=== PATIENT | male | born 1990 | race Caucasian/White ===

== ENCOUNTER 2018-05-21 08:48 | Observation (INO) | payer MEDICAID ==
[2018-05-21] VITALS (20 sets, daily range): BP systolic 96–137; BP diastolic 43–85
[~2018-05-21] VITALS: Ht 185.4 cm; Wt 87.1 kg
[2018-05-21] MEDS ORDERED: oxyCODONE SR 10mg (sust. release) tab -2 tabs (20mg) PO ONE (11:00)
[2018-05-21] MEDS ORDERED: celeCOXIB 100mg capsule PO ONE (11:00)
[2018-05-21] MEDS ORDERED: gabapentin 300mg capsule PO ONE (11:00)
[2018-05-21] MEDS ORDERED: vancomycin inj 1,500 MG in normal saline 300ml IV soln IV ONE (11:00)
[2018-05-21] MEDS ORDERED: cefazolin/dext.iso 2gm/100 ML IV ONE (11:00)
[2018-05-21] MEDS ORDERED: acetaminophen 325mg tablet PO ONE (11:00)
[2018-05-21] MEDS ORDERED: ringers solution, lacted 1,000 ML IV SCH ×2 (11:00→11:30)
[2018-05-21] MEDS ORDERED: famotidine 20mg tablet PO ONE (11:00)
[2018-05-21] MEDS ORDERED: metoclopramide 5 mg/ml inj IV ONE (11:00)
[2018-05-21] MEDS ORDERED: morphine 4 MG/ML inj SYRINge IV PRN (11:30)
[2018-05-21] MEDS ORDERED: proCHLORperazine 10 MG/2 ml inj IV PRN (11:30)
[2018-05-21] MEDS ORDERED: meperidine/PF 25mg/ml syringe IV PRN ×2 (11:30)
[2018-05-21] MEDS ORDERED: ondansetron/PF 4mg/2ml inj IV PRN ×2 (11:30→16:00)
[2018-05-21] MEDS ORDERED: vancomycin 1,000mg inj ONE (12:04)
[2018-05-21] MEDS ORDERED: sevoflurane 250ml liquid IH ONE (12:05)
[2018-05-21] MEDS ORDERED: fentaNYL/PF 50MCG/1 ML 2ML syringe ONE (12:11)
[2018-05-21] MEDS ORDERED: MIDAZolam 5mg/5ml vial ONE (12:13)
[2018-05-21] MEDS ORDERED: LIDOcaine 2% (20mg/ml) 5ml vial ONE (12:13)
[2018-05-21] MEDS ORDERED: ROPIVAcaine 0.5% (5mg/ml) 30ml vial ONE (12:13)
[2018-05-21] MEDS ORDERED: propofol inj 20 ML IV ONE (12:13)
[2018-05-21] MEDS ORDERED: NO HOME MEDS (12:56)
[2018-05-21] MEDS ORDERED: ondansetron/PF 4mg/2ml inj ONE (14:23)
[2018-05-21] MEDS ORDERED: ketorolac trometh. 30mg/ml inj. ONE (14:31)
[2018-05-21] MEDS: meperidine/PF 25mg/ml syringe IV PRN ×2 (15:14→15:48)
[2018-05-21] MEDS: morphine 4 MG/ML inj SYRINge IV PRN ×2 (15:23→15:35)
[2018-05-21] MEDS ORDERED: oxyCODONE/APAP 10/325mg tablet PO ONE (15:45)
[2018-05-21] MEDS ORDERED: oxyCODONE/APAP 5-325mg tablet PO PRN (16:00)
[2018-05-21] MEDS: oxyCODONE/APAP 5-325mg tablet PO PRN ×2 (16:46→20:34)
[2018-05-21] MEDS: potassium cl 20mEq in 1/2 NS 1,000 ML IV SCH (17:05)
[2018-05-21] MEDS: cyclobenzaprine 10mg tablet PO PRN (19:19)
[2018-05-21] MEDS ORDERED: cefazolin/dext.iso 2gm/100ml 100 ML IV SCH (20:00)
[2018-05-22] MEDS ORDERED: vancomycin/NS 1 GM ADD-VANTAGE 250 ML IV SCH
[2018-05-22] MEDS: oxyCODONE/APAP 5-325mg tablet PO PRN ×5 (00:03→15:51)
[2018-05-22] MEDS: diphenhydrAMINE 25mg capsule PO PRN ×2 (00:03→21:52)
[2018-05-22] MEDS ORDERED: vancomycin/NS 1 GM ADD-VANTAGE 250 ML IV ONE (01:29)
[2018-05-22 01:48] VITALS: BP 104/55
[2018-05-22] MEDS: potassium cl 20mEq in 1/2 NS 1,000 ML IV SCH ×3 (03:47→15:26)
[2018-05-22] MEDS ORDERED: cefazolin/dext.iso 2gm/100ml 100 ML IV SCH (04:00)
[2018-05-22 05:48] VITALS: BP 107/57
[2018-05-22 09:59] VITALS: BP 110/73
[2018-05-22] MEDS ORDERED: ibuprofen 200mg tablet PO STA (10:57)
[2018-05-22 14:00] VITALS: BP 125/68
[2018-05-22] MEDS: cyclobenzaprine 10mg tablet PO PRN (15:06)
[2018-05-22] MEDS ORDERED: HYDROmorphone inj. 0.5 MG/0.5 ML DISP.SYRIN IV ONE (15:15)
[2018-05-22] MEDS ORDERED: HYDROmorphone 1 mg/ml syringe ONE (15:19)
[2018-05-22 18:00] VITALS: BP 123/64
[2018-05-22] MEDS ORDERED: oxyCODONE/APAP 10/325mg tablet PO PRN (18:45)
[2018-05-22] MEDS ORDERED: cyclobenzaprine 10mg tablet PO PRN (18:45)
[2018-05-22] MEDS: oxyCODONE/APAP 10/325mg tablet PO PRN ×2 (19:04→22:50)
[2018-05-22] MEDS: baclofen 10mg tablet PO PRN (20:09)
[2018-05-22] MEDS ORDERED: morphine/NS 5 mg/ml CADD 50 ML IV SCH (23:31)
[2018-05-22] MEDS ORDERED: normal saline 1000ml 1,000 ML IV SCH (23:31)
[2018-05-22] MEDS ORDERED: CADD PCA waste documentation MC PRN (23:35)
[2018-05-22] MEDS ORDERED: naloxone 0.4 mg/ml inj IV PRN (23:35)
[2018-05-22] MEDS: LORazepam 2 mg/ml vial IV PRN (23:43)
[2018-05-22] MEDS: HYDROmorphone/NS 1 mg/ml CADD 50 ML IV SCH (23:58)
[2018-05-23 00:31] VITALS: BP 123/80
[2018-05-23] MEDS ORDERED: HYDROmorphone/NS 1 mg/ml CADD 50 ML IV SCH ×2 (01:00)
[2018-05-23] MEDS: HYDROmorphone/NS 1 mg/ml CADD 50 ML IV SCH ×5 (01:00→09:00)
[2018-05-23] MEDS: baclofen 10mg tablet PO PRN (05:24)
[2018-05-23] MEDS: LORazepam 2 mg/ml vial IV PRN (05:47)
[2018-05-23 06:00] VITALS: BP 119/65
[2018-05-23] MEDS ORDERED: sennosides/docusate sodium tablet PO SCH (08:00)
[2018-05-23] MEDS ORDERED: docusate sod 100mg capsule PO SCH (08:00)
[2018-05-23 10:00] VITALS: BP 121/73
[2018-05-23] MEDS: oxyCODONE/APAP 10/325mg tablet PO PRN (10:47)
== END 2018-05-23 12:04 | disposition home or self-care (01) ==
LOC: PAS 08:48 → ORTHO 4S 16:00
PROVIDERS: ADMIT Orthopaedic Surgery; ATTEND Orthopaedic Surgery
DX: S82.241A Displaced spiral fracture of shaft of right tibia, initial encounter for closed fracture (principal); S82.441A Displaced spiral fracture of shaft of right fibula, initial encounter for closed fracture; Z79.82 Long term (current) use of aspirin
CPT/HCPCS: 27759; 73590; 76001; 87070; 96365; 96366; 96367; 96375; 96376; A6223; A6449; C1713; G0378; J0690; J1170; J1885; J2001; J2060; J2175; J2250; J2270; J2405; J2704; J2765; J3010; J3370; J7030; J7120; Q0163; A7000; J2795